=== PATIENT | male | born 2000 | race Two or more races ===

== ENCOUNTER 2024-09-24 10:56 | Emergency (ER) | payer OTHER, SELFPAY ==
[2024-09-24 10:58] VITALS: BMI 32.0
[2024-09-24 11:22] VITALS: BP 138/82; PULSE 88; RESP 18; TEMP 36.9; O2SAT 96
--- NOTE | 2024-09-24 11:26 | XR_ITS ---
Examination: PA lateral chest 2 views TECHNIQUE: Upright PA lateral chest 2 views Exam date and time: September 24, 2024 1148 hours INDICATIONS: Coughing fever beginning one week ago. FINDINGS: Extensive pneumonia lingular segment left upper lobe Normal heart size Right lung clear IMPRESSION: Extensive pneumonia lingular segment left upper lobe
--- NOTE | 2024-09-24 12:07 | PD.EDURI ---
Upper Respiratory Inf. RME/HPI General Chief Complaint: Flu Like Symptoms Stated Complaint: COUGH,DIFF BREATHNG, PERAZA FOR 1 WEEK Time Seen by Provider: 09/24/24 11:52 Source: patient Arrival date/time: 09/24/24 10:56 24-year-old male with no known medical history presents to the emergency room with a chief complaint of cough, shortness of breath, headache x 1 week Mode of arrival: ambulatory Limitations: no limitations Related Data Previous Rx's ?Medication ?Instructions ?Recorded ciprofloxacin HCl 0.3 % eye drops See Rx Instructions ophthalmic 10/16/22 (eye) .COMPLEX #5 mL azithromycin 250 mg tablet See Rx Instructions PO .COMPLEX #6 09/24/24 (Zithromax Z-Shawn) tabs Allergies Allergy/AdvReac Type Severity Reaction Status Date / Time No Known Allergies Allergy Verified 09/24/24 11:00 Review of Systems Review of Systems Systems Reviewed: All systems reviewed, normal except as documented Constitutional Constitutional: Reports system reviewed and no additional complaints, except as documented, Denies fatigue, Denies fever(s), Denies headache(s) and Denies weakness Eyes Eyes: Reports system reviewed and no additional complaints, except as documented, Denies blurry vision and Denies change in vision ENT Ears, Nose, Mouth, and Throat: Reports system reviewed and no additional complaints, except as documented, Denies otalgia, Denies headache(s), Denies nasal congestion, Denies throat swelling and Denies vertigo Cardiovascular Cardiovascular: Reports system reviewed and no additional complaints, except as documented, Denies chest pain, Reports dyspnea and Denies dyspnea on exertion Respiratory Respiratory: Reports system reviewed and no additional complaints, except as documented, Reports chest congestion, Reports cough, Reports dyspnea, Denies dyspnea on exertion, Reports excessive phlegm production and Denies wheezing Gastrointestinal Gastrointestinal: Reports system reviewed and no additional complaints, except as documented, Denies abdominal pain, Denies cramping, Denies nausea and Denies vomiting Genitourinary Genitourinary: Reports system reviewed and no additional complaints, except as documented, Denies dysuria and Denies hematuria Musculoskeletal Musculoskeletal: Reports system reviewed and no additional complaints, except as documented and Denies back pain Integumentary/Breasts Skin/Breast: Reports system reviewed and no additional complaints, except as documented and Denies wounds Neurologic Neurologic: Reports system reviewed and no additional complaints, except as documented, Denies confusion, Denies headache(s), Denies lack of coordination, Denies vertigo and Denies weakness Psychiatric Psychiatric: Reports system reviewed and no additional complaints, except as documented, Denies anxiety, Denies confusion, Denies depression, Denies paranoia, Denies suicidal ideation and Denies tactile hallucinations Endocrine Endocrine: Reports system reviewed and no additional complaints, except as documented and Denies fatigue Hematologic/Lymphatic Hematologic/Lymphatic: Reports system reviewed and no additional complaints, except as documented and Denies lymphadenopathy Allergic/Immunologic Allergic/Immunologic: Reports system reviewed and no additional complaints, except as documented, Denies throat swelling, Denies urticaria and Denies wheezing ED Exam General Limitations: Present no limitations Course Quality Measures none Orders Category Date Time Status Bedside COVID-19 Antigen Test NOW Care 09/24/24 11:26 Active Bedside Influenza A&B Antigen Test NOW Care 09/24/24 11:26 Completed XR chest 2V Stat Exams 09/24/24 11:26 Completed Vital Signs Vital signs: Vital Signs Temperature 98.5 F 09/24/24 11:22 Pulse Rate 88 09/24/24 11:22 Respiratory Rate 18 09/24/24 11:22 Blood Pressure 138/82 H 09/24/24 11:22 Pulse Oximetry (%) 96 09/24/24 11:22 Oxygen Delivery Method Room Air 09/24/24 11:22 Upper Respiratory Infection MDM Narrative MDM Narrative:: 24-year-old male with no known medical history presents to the emergency room with a chief complaint of cough, shortness of breath, headache x 1 week Patient is hemodynamically stable and in no apparent distress Lung sounds are clear bilaterally with no wheezing stridor or any abnormal breath sounds Chest x-ray was completed and shows left lobe base pneumonia COVID-19 and influenza were negative Patient was discharged educated to follow-up with the primary care provider return to the emergency room for any evidence of worsening signs or symptoms Patient data External records reviewed:: [facility] previous records Clinical information provided by:: patient Social determinants that could affect healthcare access:: none Patient has the following chronic illnesses:: No chronic illness How is presenting disease/condition affected by chronic disease/condition?: no chronic disease Evaluation data The following diagnostics were reviewed and interpreted by me:: lab results and radiology exam(s) Lab and/or radiology exams considered but not ordered:: Labs and radiology exams considered and ordered Interpretation Summary: Chest [id number] to the left lower base Medications / Prescriptions Medications or Prescriptions considered but not ordered:: Rx given Medication administrations:: Rx given Consultations Consultation(s) initiated? (list below): No Diagnosis Upper Respiratory Differential Diagnosis: upper respiratory infection, viral infection, bronchitis, influenza and other (Community-acquired pneumonia) Most likely diagnosis given after review of the tests above:: Community-acquired pneumonia Admission Indicated Admission indicated?: not indicated Admission Request Was there a request for admission?: No Disposition Plan Disposition Plan: Discharge Discharge Attestation Discharge Attestation: The patient and all family members were given an opportunity to ask questions and understood the discharge instructions. Discharge instructions specifically effects, indications for sooner follow up or return to the emergency department, and the expected course of current diagnosis. Patient condition: Stable Discharge Plan Plan Patient Disposition: HOME (Self Care) Disposition Comment: Stable Prescriptions/Referrals Prescriptions/Med Rec: New azithromycin [Zithromax Z-Shawn] 250 mg tablet See Rx Instructions .ROUTE .COMPLEX Qty: 6 0RF Rx Instructions: For 250 mg dose pack: take 500 mg today (day 1), then 250 mg for 4 days (days 2-5) No Action ciprofloxacin HCl 0.3 % drops See Rx Instructions .ROUTE .COMPLEX Qty: 5 0RF Rx Instructions: put 1-2 drps in affected eye(s) every 6hr for 7 days Problem List Clinical Impression: Community acquired pneumonia Patient/Caregiver Discharge Instructions Education Materials: ED Pneumonia (Adult) Additional Instructions: Please follow-up with your primary care provider in the next 24 to 48 hours. X-ray was completed and shows pneumonia to the left base. Antibiotics are sent to your pharmacy please pick them up and take them as indicated. For any evidence of worsening signs or symptoms please return to the emergency room immediately Print Language: Swedish Stand Alone Forms: Siobhan Award Info., Patient Portal Info Letter ANJANA/KHANH Supervising Physician ANJANA/KHANH Supervising Physician: Dr Head
== END 2024-09-24 12:25 | disposition home or self-care (01) ==
LOC: SERX 12:19
PROVIDERS: Emergency Provider Emergency Medicine
DX: J18.9 Pneumonia, unspecified organism (principal)
CPT/HCPCS: 71046; 87400; 87811; 99283

== ENCOUNTER 2024-10-09 23:08 | Emergency (ER) | payer OTHER, SELFPAY ==
[2024-10-09 23:09] VITALS: BMI 31.0
[2024-10-09 23:23] VITALS: BP 122/63; PULSE 68; RESP 20; TEMP 36.8; O2SAT 97
[2024-10-09] MEDS: FLUORESCEIN SOD 1 MG STRP BOTH EYES (23:47)
[2024-10-09] MEDS: TETRACAINE PF OP SOL 0.5% 4 ML DRPETTE 1 DROP BOTH EYES (23:48)
[2024-10-10] MEDS: Erythromycin Op Oint 0.5% 1 GM PACKET BOTH EYES (00:21)
--- NOTE | 2024-10-10 00:35 | PD.EDEYE ---
ED Eye Problem RME/HPI General Chief complaint: Eye Problems Stated complaint: something in eye since 2029 Time Seen by Provider: 10/09/24 23:43 Arrival date/time: 10/09/24 23:08 24M with no significant PMH presents to ED with 1 day of bilateral eye irritation and foreign body sensation. Patient does not remember anything getting in them. 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 Patient was wearing his protective glasses, but states they are not a full wrap-around. Limitations: no limitations Related Data Previous Rx's ?Medication ?Instructions ?Recorded ciprofloxacin HCl 0.3 % eye drops See Rx Instructions ophthalmic 10/16/22 (eye) .COMPLEX #5 mL azithromycin 250 mg tablet See Rx Instructions PO .COMPLEX #6 09/24/24 (Zithromax Z-Shawn) tabs erythromycin 5 mg/gram (0.5 %) eye 0.5 inch ophthalmic (eye) QID 5 10/10/24 ointment days #3.5 grams Allergies Allergy/AdvReac Type Severity Reaction Status Date / Time No Known Allergies Allergy Verified 09/24/24 11:00 Review of Systems Review of Systems Systems Reviewed: All systems reviewed, normal except as documented Constitutional Constitutional: Reports system reviewed and no additional complaints, except as documented, Denies fever(s) and Denies headache(s) Eyes Eyes: Reports as per HPI, Reports irritation and Reports eye pain ENT Ears, Nose, Mouth, and Throat: Denies disequilibrium and Denies headache(s) Cardiovascular Cardiovascular: Reports system reviewed and no additional complaints, except as documented, Denies chest pain and Denies dyspnea Respiratory Respiratory: Reports system reviewed and no additional complaints, except as documented, Denies cough and Denies dyspnea Gastrointestinal Gastrointestinal: Reports system reviewed and no additional complaints, except as documented, Denies abdominal pain, Denies nausea and Denies vomiting Neurologic Neurologic: Reports system reviewed and no additional complaints, except as documented, Denies confusion, Denies disequilibrium and Denies headache(s) Psychiatric Psychiatric: Denies confusion Past Medical History Social History SMOKING STATUS: Never smoker ED Exam General Limitations: Present no limitations General appearance: Present alert and in no apparent distress Head Head exam: Present atraumatic Eye Eye exam: Present normal appearance, PERRL and EOMI ENT ENT exam: Present normal exam, normal oropharynx and mucous membranes moist Neck Neck exam: Present normal inspection, full ROM and trachea midline Chest Chest inspection: Present normal inspection and symmetric chest wall rise Respiratory Respiratory exam: Present normal lung sounds bilaterally Cardiovascular Cardiovascular exam: Present regular rate, normal rhythm and normal heart sounds Abdominal Exam Abdominal exam: Present soft and normal bowel sounds Extremities Exam Extremities exam: Present normal inspection and full ROM Back Exam Back exam: Present normal inspection and full ROM Neurological Exam Neurological exam: Present alert, oriented X3 and CN II-XII intact Psychiatric Psychiatric exam: Present normal affect and normal mood Skin Skin exam: Present warm, dry, intact and normal color Course Quality Measures none Orders Category Date Time Status ED Eye Irrigation ONCE Care 10/10/24 00:09 Completed Chua Lamp to Bedside X1 Care 10/09/24 23:44 Completed Erythromycin Op Oint 0.5% Med 10/10/24 00:15 Discontinued 1 gm BOTH EYES X1 ONE Fluorescein Sodium [[id number]] Med 10/09/24 23:44 Discontinued 1 mg BOTH EYES X1 ONE TETRACAINE Op Gaby 0.5% [Pontocaine Op Gaby 0.5%] Med 10/09/24 23:44 Discontinued 1 drop BOTH EYES X1 ONE Vital Signs Vital signs: Vital Signs Temperature 98.3 F 10/09/24 23:23 Pulse Rate 68 10/09/24 23:23 Respiratory Rate 20 10/09/24 23:23 Blood Pressure 122/63 10/09/24 23:23 Pulse Oximetry (%) 97 10/09/24 23:23 Oxygen Delivery Method Room Air 10/09/24 23:23 O2 at 97% on RA and WNLs Eye MDM Narrative MDM Narrative:: 24M with no significant PMH presents to ED with 1 day of bilateral eye irritation and foreign body sensation. Patient does not remember anything getting in them. 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 Patient was wearing his protective glasses, but states they are not a full wrap-around. Physical exam reveals normal pupil response and EOM. No obvious FB. Patient is afebrile, alert, but crying/tearing, Wood's lamp exam reveals no corneal abrasion. Likely UV/light injury. Patient data External records reviewed:: [facility] previous records Clinical information provided by:: patient Social determinants that could affect healthcare access:: none Patient has the following chronic illnesses:: none How is presenting disease/condition affected by chronic disease/condition?: no chronic disease Evaluation data The following diagnostics were reviewed and interpreted by me:: other (specify) (none) Lab and/or radiology exams considered but not ordered:: not ordered Interpretation Summary: n/a Medications / Prescriptions Medications or Prescriptions considered but not ordered:: ordered Medication administrations:: Medication Administration History Discontinued Medications Erythromycin (Erythromycin Op Oint 0.5% 1 Gm Packet) 1 gm BOTH EYES X1 ONE Stop: 10/10/24 00:16 Last Admin: 10/10/24 00:21 Dose: 1 gm Documented By: FATOUMATA Co-signed By: CVMilton Fluorescein Sodium (Fluorescein Sod 1 Mg Strp) 1 mg BOTH EYES X1 ONE Stop: 10/09/24 23:45 Last Admin: 10/09/24 23:47 Dose: 1 mg Documented By: FATOUMATA Comments: given to provider for administration Tetracaine HCl (Tetracaine Pf Op Gaby 0.5% 4 Ml Drpette) 1 drop BOTH EYES X1 ONE Stop: 10/09/24 23:45 Last Admin: 10/09/24 23:48 Dose: 1 drop Documented By: FATOUMATA Comments: given to provider for administration above Consultations Consultation(s) initiated? (list below): No Diagnosis Eye Problem Differential Diagnosis: corneal abrasion, conjunctivitis, acute iritis, hyphema, periorbital cellulitis, subconjunctival hemorrhage, glaucoma, corneal ulcer, ruptured globe and other (photokeratitis) Most likely diagnosis given after review of the tests above:: photokeratitis Admission Indicated Admission indicated?: not indicated Admission Request Was there a request for admission?: No Disposition Plan Disposition Plan: Discharge Discharge Attestation Discharge Attestation: The patient and all family members were given an opportunity to ask questions and understood the discharge instructions. Discharge instructions specifically effects, indications for sooner follow up or return to the emergency department, and the expected course of current diagnosis. Patient condition: Stable Discharge Plan Plan Patient Disposition: HOME (Self Care) Disposition Comment: STable Prescriptions/Referrals Prescriptions/Med Rec: New erythromycin 5 mg/gram (0.5 %) ointment 0.5 inch ophthalmic (eye) QID 5 Days Qty: 3.5 0RF No Action ciprofloxacin HCl 0.3 % drops See Rx Instructions .ROUTE .COMPLEX Qty: 5 0RF Rx Instructions: put 1-2 drps in affected eye(s) every 6hr for 7 days azithromycin [Zithromax Z-Shawn] 250 mg tablet See Rx Instructions .ROUTE .COMPLEX Qty: 6 0RF Rx Instructions: For 250 mg dose pack: take 500 mg today (day 1), then 250 mg for 4 days (days 2-5) Problem List Clinical Impression: Photokeratitis, bilateral Patient/Caregiver Discharge Instructions Education Materials: Ultraviolet Keratitis Additional Instructions: Please follow-up with PCP within 24-48 hours and return immediately if symptoms worsen. See eye doctor in the next few days. Print Language: Nepali Stand Alone Forms: Patient Portal Info Letter PA/PAD TUFTER Supervising Physician PA/PAD TUFTER Supervising Physician: Dr. Churchill
== END 2024-10-10 00:30 | disposition home or self-care (01) ==
PROVIDERS: Emergency Provider Emergency Medicine; PCP Physician Assistant
DX: H16.133 Photokeratitis, bilateral (principal)
CPT/HCPCS: 99283; A9270